=== PATIENT | male | born 1965 | race Caucasian/White ===

== ENCOUNTER 2018-08-01 22:01 | Emergency (ER) | payer OTHER ==
[~2018-08-01] VITALS: Ht 193 cm; Wt 106.6 kg
[2018-08-01 23:09] LABS: ABSOLUTE BASOPHILS 0.1 thou/uL (0.0-0.2); ABSOLUTE EOSINOPHILS 0.4 thou/uL (0.0-0.7); ABSOLUTE LYMPHOCYTES 3.8 thou/uL (0.8-5.3); ABSOLUTE MONOCYTES 1.3 thou/uL (0.0-1.2); ABSOLUTE NEUTROPHILS 7.7 thou/uL (1.6-8.1); EOSINOPHILS 3.1 %; HEMATOCRIT 48.3 % (42.0-52.0); HEMOGLOBIN 15.9 gm/dL (14.0-18.0); LYMPHOCYTES 28.4 %; MCH 28.2 pg (26.0-34.0); MCHC 32.8 g/dL (28.0-37.0); MCV 85.8 fL (80.0-100.0); MONOCYTES 9.5 %; MPV 10.6 fl. (7.2-11.1); NUCLEATED RBCS 0 /100WBC; PLATELET COUNT* 196 thou/uL (150-400); RBC 5.63 mil/uL (4.50-6.00); RDW-CV 14.4 % (10.5-14.5); WBC 13.2 thou/uL (4.0-11.0)
[2018-08-01 23:16] LABS: CALCIUM 9.4 mg/dL (8.5-10.1); CREATININE 0.9 mg/dL (0.6-1.3); POTASSIUM 4.1 mmol/L (3.5-5.1)
[2018-08-01 23:20] LABS: ALBUMIN 3.6 g/dL (3.4-5.0); TOTAL BILIRUBIN 0.3 mg/dL (<0.1-1.0)
[2018-08-02 02:39] VITALS: BP 194/118
--- NOTE | 2018-08-02 16:29 | EKG ---
[place] [address] ELECTROCARDIOGRAM REPORT Name: GALA OZUNA [id number] Admission: 08/01/18 Attend Phys: Discharge: 08/02/18 Date of : 63 Report #: [id number] THIS REPORT FOR: //name// [facility] ED Test Date: 2018-08-01 Test Time: 22:31:35 Pat Name: GALA OZUNA Department: Room: Gender: M Flavorer: ERLINDA : 1965 Requested By: Kati Schmid Order Number: [id number] Mariya MD: Fred Moon Measurements Intervals [place]er Rate: 89 P: ME: QRS: 13 QRSD: 105 T: 37 QT: 380 QTc: 463 Interpretive Statements sinus rhythm artifact noted ST elev, probable normal early repol pattern Baseline wander in lead(s) V3 No previous ECG available for comparison Electronically Signed On 08-02-2018 16:29:20 CDT by Fred Moon [email or web address] <ELECTRONICALLY SIGNED> By: Fred Moon MD, [facility] 08/02/18 1629 30 30 Fred Moon MD, FACC /EPI
== END 2018-08-02 02:40 | disposition short-term general hospital (02) ==
LOC: M.ERS 22:01
PROVIDERS: Emergency Medicine
DX: J39.2 Other diseases of pharynx (principal); J44.9 Chronic obstructive pulmonary disease, unspecified; F17.210 Nicotine dependence, cigarettes, uncomplicated; Z88.0 Allergy status to penicillin

== ENCOUNTER 2018-10-01 07:22 | Emergency (ER) | payer MEDICAID ==
[~2018-10-01] VITALS: Ht 182.9 cm; Wt 93.0 kg
[2018-10-01] MEDS ORDERED: PREDNISONE 20 M20 M1 PO (07:48)
[2018-10-01 07:50] VITALS: BP 147/97
[2018-10-01] MEDS ORDERED: ATIVAN1 MG PO (07:50)
== END 2018-10-01 08:00 | disposition home or self-care (01) ==
LOC: M.ERS 07:22
DX: J44.1 Chronic obstructive pulmonary disease with (acute) exacerbation (principal); F17.210 Nicotine dependence, cigarettes, uncomplicated; F10.10 Alcohol abuse, uncomplicated

== ENCOUNTER 2019-06-15 06:35 | Emergency (ER) | payer MEDICAID ==
[~2019-06-15] VITALS: Ht 190.5 cm; Wt 86.2 kg
[~2019-06-15 06:35] MED LIST: ATIVAN1 MG PO; PREDNISONE 20 M20 M1 PO
[2019-06-15] MEDS ORDERED: SYNTHROID88 MC1 PO (07:35)
[2019-06-15 07:53] LABS: ABSOLUTE BASOPHILS 0.1 thou/uL (0.0-0.2); ABSOLUTE EOSINOPHILS 0.1 thou/uL (0.0-0.7); ABSOLUTE MONOCYTES 0.7 thou/uL (0.0-1.2); ABSOLUTE NEUTROPHILS 9.5 thou/uL (1.6-8.1); EOSINOPHILS 0.6 %; HEMATOCRIT 49.3 % (42.0-52.0); HEMOGLOBIN 17.1 gm/dL (14.0-18.0); LYMPHOCYTES 8.9 %; MCH 29.3 pg (26.0-34.0); MCHC 34.7 g/dL (28.0-37.0); MCV 84.4 fL (80.0-100.0); MONOCYTES 6.4 %; MPV 10.5 fl. (7.2-11.1); NUCLEATED RBCS 0 /100WBC; PLATELET COUNT* 178 thou/uL (150-400); POLYS 83.1 %; RBC 5.85 mil/uL (4.50-6.00); RDW-CV 14.3 % (10.5-14.5); WBC 11.5 thou/uL (4.0-11.0)
[2019-06-15 08:07] VITALS: BP 113/76
== END 2019-06-15 08:09 | disposition left against medical advice (07) ==
LOC: M.ERS 06:35
PROVIDERS: Emergency Medicine Emergency Medical Services
DX: J95.03 Malfunction of tracheostomy stoma (principal); J44.9 Chronic obstructive pulmonary disease, unspecified; F17.210 Nicotine dependence, cigarettes, uncomplicated; Z85.12 Personal history of malignant neoplasm of trachea; Z88.0 Allergy status to penicillin

== ENCOUNTER 2019-06-19 19:24 | Emergency (ER) | payer MEDICAID ==
[~2019-06-19] VITALS: Ht 190.5 cm; Wt 90.7 kg
[~2019-06-19 19:24] MED LIST changes: +SYNTHROID88 MC1 PO
[2019-06-19] MEDS ORDERED: ALBUTEROL2.5 MG/31 INH (21:33)
[2019-06-19 22:55] LABS: ABSOLUTE BASOPHILS 0.1 thou/uL (0.0-0.2); ABSOLUTE EOSINOPHILS 0.2 thou/uL (0.0-0.7); ABSOLUTE LYMPHOCYTES 1.5 thou/uL (0.8-5.3); ABSOLUTE MONOCYTES 0.9 thou/uL (0.0-1.2); ABSOLUTE NEUTROPHILS 6.3 thou/uL (1.6-8.1); BASOPHILS 1.3 %; EOSINOPHILS 2.1 %; HEMATOCRIT 46.3 % (42.0-52.0); HEMOGLOBIN 15.6 gm/dL (14.0-18.0); LYMPHOCYTES 16.9 %; MCH 28.5 pg (26.0-34.0); MCHC 33.7 g/dL (28.0-37.0); MCV 84.7 fL (80.0-100.0); MONOCYTES 9.4 %; MPV 10.8 fl. (7.2-11.1); NUCLEATED RBCS 0 /100WBC; PLATELET COUNT* 157 thou/uL (150-400); POLYS 70.3 %; RBC 5.46 mil/uL (4.50-6.00); RDW-CV 14.3 % (10.5-14.5)
[2019-06-19 23:36] VITALS: BP 150/92
[2019-06-20 00:40] LABS: CALCIUM 8.7 mg/dL (8.5-10.1); CREATININE 0.9 mg/dL (0.6-1.3); POTASSIUM 3.8 mmol/L (3.5-5.1)
[2019-06-20 00:45] LABS: ALBUMIN 3.6 g/dL (3.4-5.0); TOTAL BILIRUBIN 0.6 mg/dL (<0.1-1.0); TOTAL PROTEIN 7.4 g/dL (6.4-8.2)
== END 2019-06-19 23:37 | disposition short-term general hospital (02) ==
LOC: M.ERS 19:24
PROVIDERS: Emergency Medicine
DX: J95.03 Malfunction of tracheostomy stoma (principal); R06.00 Dyspnea, unspecified; J44.9 Chronic obstructive pulmonary disease, unspecified; F17.210 Nicotine dependence, cigarettes, uncomplicated; Z85.12 Personal history of malignant neoplasm of trachea; Z88.0 Allergy status to penicillin